=== PATIENT | female | born 1995 | race Caucasian/White ===

== ENCOUNTER 2025-08-06 20:12 | Emergency (ER) | payer OTHER ==
[~2025-08-06] VITALS: Ht 160 cm; Wt 70.0 kg
[2025-08-06 23:29] LABS: BASOPHILS 0.4 % (0.1-1.2); EOSINOPHILS 2.7 % (0.7-5.8); LYMPHOCYTES 30.3 % (19.3-51.7); MCH 30.7 PG (25.6-32.2); MCHC 33.5 g/dL (32.2-35.5); MCV 91.6 fL (79.4-94.8); MONOCYTES 4.8 % (4.7-12.5); NEUTROPHILS 61.5 % (34.0-71.1); RBC 3.94 M/uL (3.93-5.22)
[2025-08-06 23:55] LABS: ALT (SGPT) 17.0 U/L (14-59); AST (SGOT) 14.0 U/L (15-37); GLOMERULAR FILTRATION RATE,EST 114.0 mL/min (>60); PROTEIN, TOTAL 7.2 g/dL (6.4-8.2); UREA NITROGEN 16.0 mg/dL (7-18)
[2025-08-07] MEDS ORDERED: TRANSDERM-SCOP1 EACH TD (00:07)
[2025-08-07] MEDS ORDERED: SCOPOLAMINE 1 MG/3 DAYS PATCH 1 EACH TDSY TD ONE (00:15)
[2025-08-07 00:19] VITALS: BP 116/74
--- NOTE | 2025-08-07 12:12 | EKG ---
[facility] [address] [place], [place] [address] Signed Normal sinus rhythm Normal ECG No previous ECGs available Confirmed by Alpa Mix DO ([id number]) on 08/07/2025 12:12:33 PM Electronically Signed By: ALPA MIX DO 08/07/251211 PATIENT NAME: CARLOS PÉREZ Electrocardiogram DATE OF : [birth year] PHYSICIAN: ALPA MIX DO REPORT #: [id number] REPORT IS CONFIDENTIAL AND NOT TO BE RELEASED WITHOUT AUTHORIZATION
== END 2025-08-07 00:20 | disposition home or self-care (01) ==
LOC: ED 20:12
PROVIDERS: Emergency Medicine
DX: R42 Dizziness and giddiness (principal)
CPT/HCPCS: 36415; 70450; 80053; 85025; 93005; 93010; 99284-25